=== PATIENT | male | born 1935 | race Caucasian/White ===

== ENCOUNTER 2018-11-29 21:41 | Inpatient (IN) | payer OTHER ==
[~2018-11-29] VITALS: Ht 177.8 cm; Wt 108.2 kg
[2018-11-29] MEDS ORDERED: IV NORMAL SALINE 1000 ML BAG IV ONE (21:45)
[2018-11-29] MEDS ORDERED: ACETAMINOPHEN ES 500 MG TABLET PO ONE (21:45)
--- NOTE | 2018-11-29 21:50 | NUR ---
PATIENT BIB [facility] 89 FROM [facility] FOR C/O WEAKNESS, FEVER X1 DAYS. PATIENT UPON ARRIVAL A/OX2 C/O WEAKNESS. DENIES SOB,N/V NOTED.
[2018-11-29] MEDS ORDERED: ACETAMINOPHEN ES 500 MG TABLET ONE (21:54)
[2018-11-29 22:02] LABS: BASOPHILS % (AUTO) 0.1 % (0.0-2.0); EOSINOPHILS % (AUTO) 0.4 % (0.0-7.0); HEMATOCRIT 23.9 % (36.7-47.1); LYMPHOCYTES # (AUTO) 0.6 K/uL (20.0-40.0); LYMPHOCYTES % (AUTO) 7.5 % (20.5-51.5); MEAN CORPUSCULAR HEMOGLOBIN 22.5 uug (23.8-33.4); MEAN CORPUSCULAR HGB CONC 31 g/dL (32.5-36.3); MEAN CORPUSCULAR VOLUME 73.6 fL (73.0-96.2); MONOCYTES % (AUTO) 11.1 % (0.0-11.0); NEUTROPHILS # (AUTO) 6.9 K/uL (1.8-8.9); NEUTROPHILS % (AUTO) 80.9 % (38.5-71.5); PLATELET COUNT (AUTO) 113 K/uL (152-348); RED BLOOD CELL COUNT(AUTO) 3.25 MIL/uL (4.06-5.63); WHITE BLOOD COUNT (AUTO) 8.6 K/uL (3.6-10.2)
[2018-11-29 22:08] LABS: CARBON DIOXIDE 26 mmol/L (21-32); CHLORIDE 107 mmol/L (98-107); CREATININE 1.3 mg/dL (0.6-1.3); GLUCOSE 179 mg/dL (74-106); POTASSIUM 4.1 mmol/L (3.5-5.1); UREA NITROGEN, BLOOD 21 mg/dL (7-18)
[2018-11-29 22:14] LABS: ALANINE AMINOTRANSFERASE 12 U/L (16-63); ALKALINE PHOSPHATASE 66 U/L (50-136); ASPARTATE AMINOTRANSFERASE 15 U/L (15-37); BILIRUBIN,DIRECT 0.2 mg/dL (0.0-0.2); BILIRUBIN,TOTAL 0.7 mg/dL (0.2-1.0); TOTAL PROTEIN, SERUM 6.7 g/dL (6.4-8.2)
[2018-11-29 22:19] LABS: HEMOGLOBIN 7.3 g/dL (12.5-16.3)
[2018-11-29 22:22] LABS: ACETAMINOPHEN < 2.0 ug/mL (10-30)
[2018-11-29] MEDS ORDERED: TERA10CA4 PO (22:25)
[2018-11-29] MEDS ORDERED: DILT-1 PO (22:25)
[2018-11-29] MEDS ORDERED: ACET325T53 PO (22:25)
[2018-11-29] MEDS ORDERED: RIVA20TA PO (22:25)
[2018-11-29] MEDS ORDERED: [UNRECOGNIZED DRUG - CODE] PO (22:25)
[2018-11-29] MEDS ORDERED: FINA5TAB11 PO (22:25)
[2018-11-29] MEDS ORDERED: PRAV10TA40 PO (22:25)
[2018-11-29] MEDS ORDERED: DOCU100C36 PO (22:25)
[2018-11-29] MEDS ORDERED: PANT40TA2 PO (22:25)
[2018-11-29] MEDS ORDERED: CYAN-51 PO (22:25)
[2018-11-29] MEDS ORDERED: MELA5TAB2 SL (22:25)
[2018-11-29] MEDS ORDERED: MORPHINE SULFATE 4 MG/1 ML DISP.SYRIN ONE (22:56)
[2018-11-29] MEDS ORDERED: PANTOPRAZOLE SODIUM 40 MG VIAL ONE (22:56)
[2018-11-29] MEDS ORDERED: MORPHINE SULFATE 4 MG/1 ML DISP.SYRIN IV ONE (23:00)
[2018-11-29] MEDS ORDERED: PANTOPRAZOLE SODIUM 40 MG VIAL IV ONE (23:00)
[2018-11-29 23:11] LABS: ETHANOL < 3 MG/DL (0-0)
--- NOTE | 2018-11-29 23:13 | NUR ---
DR ARRIAGA SPEAKING WITH DR GUSTAFSON FOR CONSULT
[2018-11-29 23:16] LABS: *BILIRUBIN,URIN NEGATIVE (NEGATIVE); *BLOOD, URINE NEGATIVE (NEGATIVE); *CLARITY,URINE CLEAR (CLEAR); *COLOR,URINE YELLOW (YELLOW); *KETONES,URINE TRACE (NEGATIVE); *UROBILINOGEN,URINE 0.2 E.U./dl (NORMAL); LEUKOCYTE ESTERASE ,URINE NEGATIVE (NEGATIVE); NITRITE, URINE NEGATIVE (NEGATIVE); PH,URINE 5.5 (5.0-8.0); UGLUCOSE NEGATIVE (NEGATIVE)
--- NOTE | 2018-11-29 23:18 | NUR ---
PATIENT C/O LEFT SIDE CHEST WALL PAIN. DR ARRIAGA MADE AWARE
--- NOTE | 2018-11-29 23:25 | NUR ---
Received pt awake, alert and oriented x2 to name and location. Pt able to follow simple commands such as open eyes and squeeze hands. DX: NSTEMI. Tele placed and noted to be ST with HR 112. Pt O2 at 97% via 2L NC. Pt denies pain or discomfort at this time. Lower extremities with weakness noted. PIV on right hand and left AC patent and intact. No acute respiratory distress noted. Pertinent assessment completed, safety measures initiated. Call light within reach. Continue to monitor.
[2018-11-29 23:29] LABS: RBC,URINE 0-3 /HPF (0-3)
[2018-11-29 23:30] LABS: BACTERIA,URINE FEW /HPF (NONE SEEN); MUCUS,URINE FEW /LPF (0-FEW); SQUAMOUS EPITHELIAL CELL,UR FEW /HPF (NONE SEEN)
[2018-11-29 23:31] LABS: *AMPHETAMINE, URINE NEGATIVE (NEGATIVE); *BARBITURATE, URINE NEGATIVE (NEGATIVE); *CANNABINOID, URINE NEGATIVE (NEGATIVE); *COCCAINE, URINE NEGATIVE (NEGATIVE); *OPIATE, URINE NEGATIVE (NEGATIVE); *PHENCYCLIDINE SCREEN,URINE NEGATIVE (NEGATIVE)
[2018-11-29] MEDS ORDERED: IV D5 1/2 NS 1000 ML 1,000 ML IV PRN (23:40)
[2018-11-29] MEDS ORDERED: ONDANSETRON 4 MG/2 ML VIAL IV PRN (23:45)
[2018-11-29] MEDS ORDERED: MAGNESIUM HYDROXIDE 30 ML LIQUID UDC PO PRN (23:45)
[2018-11-29] MEDS ORDERED: Z GUARD REMEDY PASTE 57 GM TUBE TOP PRN (23:45)
[2018-11-29] MEDS ORDERED: ACETAMINOPHEN 325 MG TABLET PO PRN (23:45)
[2018-11-29] MEDS ORDERED: HYDROCODONE/APAP 5-325MG TABLET PO PRN (23:45)
[2018-11-29] MEDS ORDERED: ZOLPIDEM 5 MG TABLET PO PRN (23:45)
[2018-11-30] VITALS (13 sets, daily range): BP systolic 108–140; BP diastolic 63–89
[2018-11-30 00:34] LABS: EOSINOPHILS % (MANUAL) 1 % (0-8); LYMPHOCYTES % (MANUAL) 10 % (20-40); MONOCYTES % (MANUAL) 6 % (2-10); NEUTROPHILS % (MANUAL) 83 % (42-75)
--- NOTE | 2018-11-30 02:00 | NUR ---
Blood transfusion started. VSS, afebrile. No s/s of acute respiratory distress. Pt denies pain, chills or SOB. See transfusions data for more information.
--- NOTE | 2018-11-30 04:00 | NUR ---
1 UNIT of PRBC transfused successfully. Pt VSS, afebrile. Pt denies discomfort or pain at this time. Continue to monitor pt.
[2018-11-30 05:11] LABS: BASOPHILS % (AUTO) 0.1 % (0.0-2.0); EOSINOPHILS % (AUTO) 0.1 % (0.0-7.0); HEMATOCRIT 25.4 % (36.7-47.1); HEMOGLOBIN 7.8 g/dL (12.5-16.3); LYMPHOCYTES # (AUTO) 0.6 K/uL (20.0-40.0); LYMPHOCYTES % (AUTO) 7.1 % (20.5-51.5); MEAN CORPUSCULAR HEMOGLOBIN 23.1 uug (23.8-33.4); MEAN CORPUSCULAR HGB CONC 31 g/dL (32.5-36.3); MEAN CORPUSCULAR VOLUME 75.3 fL (73.0-96.2); MONOCYTES # (AUTO) 1.1 K/uL (2.0-10.0); MONOCYTES % (AUTO) 11.6 % (0.0-11.0); NEUTROPHILS # (AUTO) 7.4 K/uL (1.8-8.9); NEUTROPHILS % (AUTO) 81.1 % (38.5-71.5); PLATELET COUNT (AUTO) 110 K/uL (152-348); RED BLOOD CELL COUNT(AUTO) 3.38 MIL/uL (4.06-5.63); WHITE BLOOD COUNT (AUTO) 9.1 K/uL (3.6-10.2)
[2018-11-30 05:16] LABS: CARBON DIOXIDE 25 mmol/L (21-32); CHLORIDE 108 mmol/L (98-107); CHOLESTEROL 116 mg/dL (<200); CREATININE 1.2 mg/dL (0.6-1.3); GLUCOSE 202 mg/dL (74-106); HDL CHOLESTEROL 53 mg/dL (40-60); MAGNESIUM 1.7 mg/dL (1.8-2.4); PHOSPHOROUS 3.3 mg/dL (2.5-4.9); POTASSIUM 4.5 mmol/L (3.5-5.1); TRIGLYCERIDES 43 MG/DL (30-150); UREA NITROGEN, BLOOD 23 mg/dL (7-18)
--- NOTE | 2018-11-30 05:25 | NUR ---
Paged television analyzer [facility] GILL PEREZ regarding pt condition. Pt c/o of SOB and ST with HR 122. O2 sat 94% via 2L NC. Pt lung sounds diminished upon auscultation. Pt is also restless. Order of LASIX 20 mg once IV now. Will continue to monitor and carry out order.
[2018-11-30] MEDS ORDERED: FUROSEMIDE 20 MG/2 ML VIAL IV STA (05:39)
[2018-11-30 05:59] LABS: ABG BASE EXCESS -4.6 mmol/L; ABG HCO3 19.7 mmol/L; ABG PH 7.393 (7.350-7.450); ABG PO2 66.6 mmHg (75.0-100.0); ABG SITE LEFT RADIAL; ABG TOTAL HEMOGLOBIN 8.8 G/dL (13.5-18.0); COHb 1.9 % (0.5-1.5); MetHb 0.2 % (0.0-1.5); O2Hb 90.1 % (94.0-97.0); VENT MODE Nasal Cannula
--- NOTE | 2018-11-30 08:00 | NUR ---
At this time patient with severe c/of SOB and within 10 minutes progress to chest pain 12/25. A call to v/stol landing signal officer and orders received and implemented. Attending physician also called to be notified. Addendum: 11/30/18 at 0842 by FÁTIMA LOPEZ RN Orders to put pt. on BIPAP if SOB continuous. Base line ABG ordered PP.
[2018-11-30] MEDS ORDERED: FUROSEMIDE 40 MG/4 ML VIAL IV ONE ×2 (08:15→08:45)
--- NOTE | 2018-11-30 08:20 | NUR ---
A call back from attending physician spoke with Dr. Tinoco and orders for nitro-pace, morphine and one more dose of lasix 4mg received and implemented.
[2018-11-30] MEDS: MORPHINE SULFATE 2 MG/1 ML DISP.SYRIN IV PRN ×2 (08:30→08:53)
[2018-11-30] MEDS: NITROGLYCERIN OINT 1 GM PACKET TP SCH ×2 (08:31→12:20)
[2018-11-30 08:55] LABS: ABG BASE EXCESS -1.6 mmol/L; ABG HCO3 22.3 mmol/L; ABG PCO2 33.9 mmHg (35.0-45.0); ABG PH 7.435 (7.350-7.450); ABG PO2 68.9 mmHg (75.0-100.0); ABG SITE RIGHT RADIAL; COHb 2.2 % (0.5-1.5); MetHb 0.4 % (0.0-1.5); VENT MODE Nasal Cannula
[2018-11-30] MEDS ORDERED: MORPHINE SULFATE 2 MG/1 ML DISP.SYRIN IV PRN (09:15)
[2018-11-30 09:34] LABS: IRON, SERUM 45 ug/dL (50-175)
[2018-11-30] MEDS ORDERED: BUMETANIDE INJ 4 MG in IV DEXTROSE 5% 24 ML IV ONE (10:00)
[2018-11-30] MEDS: PANTOPRAZOLE SODIUM 40 MG VIAL IV SCH (12:19)
[2018-11-30] MEDS: MAGNESIUM SULFATE/D5W 100 ML IV SCH ×2 (13:35→14:46)
[2018-11-30] MEDS: ASPIRIN 81 MG TAB.CHEW PO SCH (14:53)
--- NOTE | 2018-11-30 17:50 | NUR ---
Bedside report given to Davin Coy. Duran. informed of call from and update given to case assistant Lamar. Patient left in bed resting family at bedside and also updated on care plan. BUE Iv lines, patent. Pt. AAox1-2-3. On NC. 4 liters.
[2018-11-30] MEDS ORDERED: RIVAROXABAN 10 MG TABLET PO SCH (18:00)
--- NOTE | 2018-11-30 20:00 | NUR ---
Received patient laying in bed. HOB elevated. A/O x 2-3.O2 4L NC. TELE SR at 82 with some PVC. No acute distress noted. Denies pain or SOB. Skin check done, Left and right redness in the groin. Silva cath draining clear and yellow urine. Safety initiated. call light within reach, will continue to monitor.
[2018-11-30] MEDS: ATORVASTATIN 40 MG TABLET PO SCH (20:38)
[2018-11-30] MEDS: TERAZOSIN 5 MG CAPSULE PO SCH (20:38)
[2018-11-30] MEDS ORDERED: ATORVASTATIN 10 MG TABLET PO SCH ×2 (21:00)
[2018-11-30] MEDS ORDERED: FUROSEMIDE 40 MG/4 ML VIAL IV SCH (21:00)
[2018-11-30] MEDS: METOPROLOL TARTRATE 25 MG TABLET PO SCH (21:54)
[2018-12-01 00:27] VITALS: BP 108/63
[2018-12-01 04:00] VITALS: BP 110/63
--- NOTE | 2018-12-01 07:28 | NUR ---
No changes t/o shift. Patient slept t/o shift. Vital signs stable. Remains on O2 4lL NC. Denies SOB and Chest Pain. Good urine output 1700 in 24 hours. Safety and comfort measures maintained t/o shift. All meds given as ordered. All needs met.
--- NOTE | 2018-12-01 08:00 | NUR ---
AWAKE ALERT AND VERBALLY RESPONSIVE NO SS OF PAIN OR DISTRESS. CONTINUE WITH TELE OBSERVATION
[2018-12-01] MEDS ORDERED: DILTIAZEM HCL CD 120 MG CAP.SR.24H PO SCH (09:00)
[2018-12-01] MEDS ORDERED: FUROSEMIDE 40 MG/4 ML VIAL IV SCH (09:00)
[2018-12-01] MEDS ORDERED: PANTOPRAZOLE SODIUM 40 MG TABLET.DR PO SCH (09:00)
[2018-12-01] MEDS: ASPIRIN 81 MG TAB.CHEW PO SCH (09:05)
[2018-12-01] MEDS: DOCUSATE SODIUM 100 MG CAPSULE PO SCH (09:05)
[2018-12-01] MEDS: PANTOPRAZOLE SODIUM 40 MG VIAL IV SCH (09:05)
[2018-12-01] MEDS: FINASTERIDE 5 MG TABLET PO SCH (09:05)
[2018-12-01] MEDS: FUROSEMIDE 20 MG/2 ML VIAL IVP SCH ×2 (09:05→21:09)
[2018-12-01] MEDS: CYANOCOBALAMIN 1,000 MCG TABLET PO SCH (09:06)
[2018-12-01] MEDS: METOPROLOL TARTRATE 25 MG TABLET PO SCH ×2 (09:13→21:00)
[2018-12-01 09:15] LABS: EOSINOPHILS # (AUTO) 0.1 K/uL (0.0-0.7); LYMPHOCYTES # (AUTO) 0.8 K/uL (20.0-40.0); MONOCYTES # (AUTO) 0.6 K/uL (2.0-10.0); PLATELET COUNT (AUTO) 107 K/uL (152-348); WHITE BLOOD COUNT (AUTO) 6.2 K/uL (3.6-10.2)
[2018-12-01 09:16] LABS: BASOPHILS % (AUTO) 0.5 % (0.0-2.0); EOSINOPHILS % (AUTO) 1.2 % (0.0-7.0); HEMATOCRIT 23.8 % (36.7-47.1); LYMPHOCYTES % (AUTO) 13.1 % (20.5-51.5); MEAN CORPUSCULAR HGB CONC 31 g/dL (32.5-36.3); MEAN CORPUSCULAR VOLUME 74.5 fL (73.0-96.2); MONOCYTES % (AUTO) 9.8 % (0.0-11.0); NEUTROPHILS # (AUTO) 4.7 K/uL (1.8-8.9); NEUTROPHILS % (AUTO) 75.4 % (38.5-71.5)
[2018-12-01 09:33] LABS: CARBON DIOXIDE 32 mmol/L (21-32); CHLORIDE 107 mmol/L (98-107); CREATININE 1.4 mg/dL (0.6-1.3); GLUCOSE 163 mg/dL (74-106); MAGNESIUM 2.1 mg/dL (1.8-2.4); PHOSPHOROUS 2.7 mg/dL (2.5-4.9); POTASSIUM 3.4 mmol/L (3.5-5.1); UREA NITROGEN, BLOOD 24 mg/dL (7-18)
[2018-12-01 09:39] LABS: HEMOGLOBIN 7.4 g/dL (12.5-16.3)
[2018-12-01 11:04] VITALS: BP 106/59
--- NOTE | 2018-12-01 12:25 | NUR ---
SEEN BY DR MARISOL VALDEZ FOR FOLLOW-UP SEE NOTES
[2018-12-01 15:17] VITALS: BP 103/59
--- NOTE | 2018-12-01 19:50 | NUR ---
Patient was received from the days shift RN. Patient has a leaking IV on the LT AC, IV on the rt, hand is patent. Nasal cannula was reapplied and patient was advised to keep it on. Silva is draining freely. Alert and Oriented to place and person only. Comfort and safety provided.
[2018-12-01 20:00] VITALS: BP 106/61
[2018-12-01] MEDS: TERAZOSIN 5 MG CAPSULE PO SCH (21:09)
[2018-12-01] MEDS: ATORVASTATIN 40 MG TABLET PO SCH (21:09)
[2018-12-02] VITALS: BP 108/63
[2018-12-02 04:00] VITALS: BP 118/56
--- NOTE | 2018-12-02 05:51 | NUR ---
Patient slept well at night. Removed his O2 cannula several times. Silva is draining clear jarrett urine. Cooperative and in good mood. [place] ed to place and person only.
[2018-12-02 06:33] LABS: BASOPHILS % (AUTO) 0.4 % (0.0-2.0); EOSINOPHILS # (AUTO) 0.1 K/uL (0.0-0.7); LYMPHOCYTES # (AUTO) 0.9 K/uL (20.0-40.0); NEUTROPHILS # (AUTO) 4.5 K/uL (1.8-8.9); WHITE BLOOD COUNT (AUTO) 6.2 K/uL (3.6-10.2)
[2018-12-02 06:36] LABS: EOSINOPHILS % (AUTO) 1.7 % (0.0-7.0); HEMATOCRIT 23.3 % (36.7-47.1); LYMPHOCYTES % (AUTO) 14.3 % (20.5-51.5); MEAN CORPUSCULAR HEMOGLOBIN 23.2 uug (23.8-33.4); MEAN CORPUSCULAR HGB CONC 31 g/dL (32.5-36.3); MONOCYTES # (AUTO) 0.6 K/uL (2.0-10.0); NEUTROPHILS % (AUTO) 73.6 % (38.5-71.5); PLATELET COUNT (AUTO) 113 K/uL (152-348); RED BLOOD CELL COUNT(AUTO) 3.16 MIL/uL (4.06-5.63)
[2018-12-02 06:39] LABS: HEMOGLOBIN 7.3 g/dL (12.5-16.3)
[2018-12-02 06:44] LABS: CARBON DIOXIDE 31 mmol/L (21-32); CHLORIDE 105 mmol/L (98-107); CREATININE 1.3 mg/dL (0.6-1.3); GLUCOSE 154 mg/dL (74-106); PHOSPHOROUS 2.7 mg/dL (2.5-4.9); POTASSIUM 3.2 mmol/L (3.5-5.1); UREA NITROGEN, BLOOD 29 mg/dL (7-18)
[2018-12-02] MEDS ORDERED: POTASSIUM CHLORIDE 20 MEQ POWDER PACKET PO ONE (07:30)
[2018-12-02 08:00] VITALS: BP 128/68
--- NOTE | 2018-12-02 08:19 | NUR ---
PT IS ORIENTED TO PLACE AND PERSON ONLY. NO ACUTE DISTRESS NOTED AT THIS TIME. PT RESTING IN BED. PT EASILY AROUSABLE. BED LOCKED AND IN LOW POSITION. CALL LIGHT IN REACH, WILL CONTINUE TO MONITOR , WILL CONTINUE PLAN OF CARE.
[2018-12-02] MEDS: PANTOPRAZOLE SODIUM 40 MG VIAL IV SCH (08:39)
[2018-12-02] MEDS: FUROSEMIDE 20 MG TABLET PO SCH ×2 (08:40→17:21)
[2018-12-02] MEDS: FINASTERIDE 5 MG TABLET PO SCH (08:40)
[2018-12-02] MEDS: DOCUSATE SODIUM 100 MG CAPSULE PO SCH (08:41)
[2018-12-02] MEDS: CYANOCOBALAMIN 1,000 MCG TABLET PO SCH (08:41)
[2018-12-02] MEDS: ASPIRIN 81 MG TAB.CHEW PO SCH (08:41)
[2018-12-02] MEDS: METOPROLOL TARTRATE 25 MG TABLET PO SCH (08:44)
--- NOTE | 2018-12-02 11:00 | NUR ---
Pt seen by hospitalist Dr. Chung.
[2018-12-02 11:05] VITALS: BP 123/68
[2018-12-02 15:08] VITALS: BP 112/64
--- NOTE | 2018-12-02 15:41 | NUR ---
Pt seen by GI MANUFACTURING EXECUTIVE
--- NOTE | 2018-12-02 18:22 | NUR ---
PT TO BE TRANSFERRED TO [facility] FOR HIGHER LEVEL OF CARE AT 199912/02/18. NO SIGNS OF DISTRESS NOTED.
--- NOTE | 2018-12-02 19:20 | NUR ---
Patient is ready for transfer to the [facility] ICU room 7362. Charge Nurse Olga will be receiving the patient. Pick-up is at 2000
--- NOTE | 2018-12-02 19:30 | NUR ---
Gave report over the phone to the ICU charge nurse Olga. Dr Lopez is accepting the patient.
--- NOTE | 2018-12-02 20:00 | NUR ---
Gave report to the paramedics. Belongings checked, daughter Barbara was called, she has the cell phone of the patient.
--- NOTE | 2018-12-02 20:10 | NUR ---
Patient left the floor via gurney with paramedics. Tele box was returned to the manufacturing quality technician
== END 2018-12-02 20:15 | disposition short-term general hospital (02) | DRG 640 ==
LOC: ER 21:41 → TELE3 23:19
PROVIDERS: ADMIT Student in an Organized Health Care Education/Training Program; ATTEND Student in an Organized Health Care Education/Training Program
PROC: 30233N1 Transfusion of Nonautologous Red Blood Cells into Peripheral Vein, Percutaneous Approach (ICD-10-PCS; principal; 2018-11-30)
DX: E86.0 Dehydration (principal); I21.4 Non-ST elevation (NSTEMI) myocardial infarction; G93.41 Metabolic encephalopathy; I50.43 Acute on chronic combined systolic (congestive) and diastolic (congestive) heart failure; J96.01 Acute respiratory failure with hypoxia; D62 Acute posthemorrhagic anemia; K92.2 Gastrointestinal hemorrhage, unspecified; E44.1 Mild protein-calorie malnutrition; I11.0 Hypertensive heart disease with heart failure; Z66 Do not resuscitate; I08.3 Combined rheumatic disorders of mitral, aortic and tricuspid valves; I48.0 Paroxysmal atrial fibrillation; N40.0 Benign prostatic hyperplasia without lower urinary tract symptoms; Z79.01 Long term (current) use of anticoagulants; E78.5 Hyperlipidemia, unspecified; Z86.73 Personal history of transient ischemic attack (TIA), and cerebral infarction without residual deficits; D69.6 Thrombocytopenia, unspecified; F03.90 Unspecified dementia, unspecified severity, without behavioral disturbance, psychotic disturbance, mood disturbance, and anxiety; E87.6 Hypokalemia; E83.51 Hypocalcemia
CPT/HCPCS: 36415; 36600; 70030-TC; 70450; 71045; 80307; 83550; 83605; 83735; 84100; 84443; 85025; 85610; 85730; 86850; 86900; 86901; 86920; 87040; 87086; 93005; 93307; A4663; A9150; C9113; G0378; G0480; G0480-TC; J1940; J2270; J3475; J3490; J7050; J7060; P9016-BL; P9021